=== PATIENT | female | born 1950 | race Caucasian/White ===

== ENCOUNTER 2017-04-10 10:02 | Outpatient (CLI) ==
--- NOTE | 2017-04-10 12:51 | DEXA ---
EXAM: Bone density HISTORY: Postmenopausal female with history of smoking COMPARISON: None TECHNIQUE: Digital images of the thoracolumbar spine and hips were provided and calculation of bone density was obtained. FINDINGS: Digital images demonstrate no compression deformities of the thoracolumbar spine. DEXA scan of the lumbar spine is of good quality. The total BMD equals 0.761 grams per square centimeter. T-score is - 3.5 with a Z-score of - 2.0 DEXA of the hips was performed and of good quality. Total bone marrow density of 0.807 grams per square centimeter. T score is - 1.6 and Z-score of - 0.5. IMPRESSION: Bone density of the hips and lumbar spine demonstrate osteoporosis of the lumbar spine and osteopenia of the hips by WHO criteria. FRAX calculation tool demonstrates 10-year major osteoporotic fracture risk of 12.4% and hip fractur e risk of 3.4% T score greater than -1 is normal T score -1 to -2.5 is osteopenia T score less than - 2.5 is osteoporosis
== END 2017-04-10 10:03 | disposition home or self-care (01) ==
LOC: RAD 10:02
PROVIDERS: ATTEND Family Medicine
DX: Z12.31 Encounter for screening mammogram for malignant neoplasm of breast (principal); Z78.0 Asymptomatic menopausal state
CPT/HCPCS: 77067

== ENCOUNTER 2018-05-29 13:16 | Outpatient (CLI) | payer OTHER ==
--- NOTE | 2018-05-30 08:50 | MAMMO ---
EXAM: Digital screening mammogram HISTORY: Screening COMPARISON: 04/10/2017 FINDINGS: Digital MLO and CC views of the right and left breast were performed. Tomosynthesis was p erformed. Computer aided detection utilized. The breast tissue is heterogeneously dense, which coul d obscure small masses. Benign bilateral calcifications. There is no evidence for mass, asymmetry, di stortion, or suspicious calcifications in either breast. IMPRESSION: 1. No evidence of malignancy in the right or left breast. 2. Annual screening mammogram is recommended in one year. BIRADS category 2, benign
== END 2018-05-29 13:17 | disposition home or self-care (01) ==
LOC: RAD 13:16
PROVIDERS: ATTEND Family Medicine
DX: Z12.31 Encounter for screening mammogram for malignant neoplasm of breast (principal)
CPT/HCPCS: 77067